=== PATIENT | female | born 1975 | race Caucasian/White ===

== ENCOUNTER 2018-09-21 16:51 | Emergency (ER) | payer OTHER ==
[~2018-09-21] VITALS: Ht 154.9 cm; Wt 130.2 kg
[2018-09-21 16:57] VITALS: Ht 154.9 cm; Wt 130.2 kg
[2018-09-21 18:22] VITALS: BP 148/82
== END 2018-09-21 18:22 | disposition home or self-care (01) ==
LOC: ED 16:51
DX: H66.93 Otitis media, unspecified, bilateral (principal); I10 Essential (primary) hypertension
CPT/HCPCS: 82962